=== PATIENT | female | born 1965 | race Caucasian/White ===

== ENCOUNTER 2021-12-24 06:46 | Day surgery (SDC) | payer BC ==
[~2021-12-24 06:46] MED LIST: Lactated Ringers 1,000 ML IV SCH
[2021-12-24] MEDS ORDERED: Ondansetron 4 MG/2 ML SDV IVPUSH PRN (07:18)
[2021-12-24] MEDS ORDERED: Morphine 4 MG/ML VIAL IVPUSH PRN (07:18)
[2021-12-24] MEDS ORDERED: Albuterol 0.083% 2.5 MG/3 ML Neb Soln NEB PRN (07:18)
[2021-12-24] MEDS ORDERED: Metoclopramide 10 MG/2 ML SDV IVPUSH PRN (07:18)
[2021-12-24] MEDS ORDERED: Naloxone 0.4 MG/ML SDV IVPUSH PRN (07:18)
[2021-12-24] MEDS ORDERED: HYDROmorphone 1 MG/ML Syringe IVPUSH PRN (07:18)
[2021-12-24] MEDS ORDERED: fentaNYL 50 MCG/ML SDV IVPUSH PRN (07:18)
[2021-12-24] MEDS ORDERED: Dexmedetomidine 200 MCG/2 ML SDV ONE (08:06)
[2021-12-24] MEDS ORDERED: fentaNYL 100 MCG/2 ML SDV ONE (08:06)
[2021-12-24] MEDS ORDERED: Propofol 200 MG/20 ML SDV ONE (08:06)
[2021-12-24] MEDS ORDERED: Succinylcholine/Sod PF 100 MG/5 ML SYRINGE IV ONE (08:07)
[2021-12-24] MEDS ORDERED: Lidocaine 2% 5 ML SDV ONE (08:07)
[2021-12-24] MEDS ORDERED: Ondansetron 4 MG/2 ML SDV ONE (08:47)
[2021-12-24] MEDS ORDERED: Ketorolac 30 MG/ML SDV ONE (08:47)
[2021-12-24] MEDS ORDERED: Acetaminophen 500 MG Tab PO ONE (10:10)
== END 2021-12-24 10:40 | disposition home or self-care (01) ==
LOC: MW.SDS 06:46
PROVIDERS: ATTEND Obstetrics & Gynecology
DX: N84.0 Polyp of corpus uteri (principal); N95.0 Postmenopausal bleeding; E66.9 Obesity, unspecified; Z88.8 Allergy status to other drugs, medicaments and biological substances; Z90.49 Acquired absence of other specified parts of digestive tract
CPT/HCPCS: 58558; A9270; J0330; J1885; J2405; J2704; J3010; J7120; 00952